=== PATIENT | male | born 1945 ===

== ENCOUNTER 2020-09-26 17:06 | Inpatient (IN) | payer MEDICARE, BC ==
[~2020-09-26] VITALS: Ht 175.3 cm; Wt 106.0 kg
--- NOTE | 2020-09-26 17:31 | NUR ---
[place] [facility] [place] PT HAS WOUND ON HIS FOOT AND ALSO HAD ELEVATED TR[place] [facility] [place] PT HAD RUNS OF APPROX 5 BEATS OF V TACH SEVERAL TIMES DURING THEIR TRANSPORT. PT RECEIVED 1G ROCEPHIN, 1G VANCOMYCIN, AND 60MG OF L[place] [facility] [place] RESTING IN RINGLESIDE, MONITORING IN PLACE, NADN AT THIS TIME, DR. SORENSEN AT BEDSIDE FOR EVAL, WCTM.
[2020-09-26 17:50] LABS: BASOPHILS % (AUTO) 0 % (0-1); EOSINOPHILS % (AUTO) 0 % (1-7); LYMPHOCYTES % (AUTO) 7 % (22-44); MEAN CORPUSCULAR HEMOGLOBIN 31.1 pg (27.5-34.5); MEAN CORPUSCULAR HGB CONC 32.8 g/dL (33.2-36.2); MEAN PLATELET VOLUME 8.6 fL (7.4-10.4); MONOCYTES % (AUTO) 9 % (2-9); NEUTROPHILS % (AUTO) 84 % (42-75); PLATELET COUNT 226 x10^3/uL (130-400); RED BLOOD COUNT 3.83 x10^6/uL (4.38-5.82)
[2020-09-26 17:51] LABS: ALBUMIN 3.2 g/dL (3.4-5.0); ANION GAP 8 mmol/L (5-15); CALCIUM 8.3 mg/dL (8.5-10.1); CHLORIDE 102 mmol/L (98-107)
[2020-09-26 17:58] LABS: CREATININE 1.41 mg/dL (0.7-1.3)
[2020-09-26 18:01] LABS: TROPONIN I 0.718 ng/mL (0.000-0.045)
--- NOTE | 2020-09-26 18:48 | NUR ---
REPORT FROM MARIELENA MCKEE
--- NOTE | 2020-09-26 18:48 | NUR ---
HOSPITALIST AT BEDSIDE
[2020-09-26 19:41] VITALS: BP 133/70
[2020-09-26] MEDS ORDERED: HEPARIN 5,000 UNITS/ML, 1ML ONE (19:49)
[2020-09-26] MEDS ORDERED: VANCOMYCIN PER PHARMACY MC PRN (20:00)
[2020-09-26] MEDS ORDERED: HEPARIN 5,000 UNITS/ML, 1ML SQ SCH (20:00)
[2020-09-26] MEDS ORDERED: SODIUM CHLORIDE 0.9% 1,000 ML IV SCH (20:00)
[2020-09-26] MEDS ORDERED: POLYETHYLENE GLYCOL 17 GM PACKET PO PRN (20:00)
[2020-09-26] MEDS ORDERED: BISACODYL 10 MG SUPP PR PRN (20:00)
[2020-09-26 20:02] VITALS: BP 133/70
[2020-09-26 20:19] LABS: INTERNATIONAL NORMALIZED RATIO 1.22 (0.93-1.1)
[2020-09-26] MEDS ORDERED: METF500T17 PO (20:21)
[2020-09-26] MEDS ORDERED: ENAL10TA9 PO (20:21)
[2020-09-26] MEDS ORDERED: POTA8CAP20 PO (20:21)
[2020-09-26] MEDS ORDERED: GLIP5TAB10 PO (20:21)
[2020-09-26] MEDS ORDERED: FURO40TA6 PO (20:21)
[2020-09-26] MEDS ORDERED: PREG25CA PO (20:21)
[2020-09-26] MEDS ORDERED: SITA50TA PO (20:21)
[2020-09-26] MEDS ORDERED: SIMV20TA19 PO (20:21)
[2020-09-26] MEDS ORDERED: PHARMACOKINETIC MONITORING MC PRN (20:30)
[2020-09-26] MEDS ORDERED: VANCOMYCIN 2,500 MG in SODIUM CHLORIDE 0.9% 500 ML IV ONE (20:30)
[2020-09-26] MEDS ORDERED: PHARMACOKINETIC CONSULTATION MC ONE (20:30)
[2020-09-26] MEDS: HEPARIN 5,000 UNITS/ML, 1ML SQ SCH (21:49)
[2020-09-26] MEDS: MEROPENEM 1 GM in SODIUM CHLORIDE 0.9% 100 ML IV SCH (21:49)
[2020-09-26] MEDS ORDERED: MAGNESIUM SULFATE 4 GM in SODIUM CHLORIDE 0.9% 100 ML IV ONE (22:00)
[2020-09-26] MEDS: FUROSEMIDE 20 MG/2 ML IV SCH (22:41)
[2020-09-26 23:41] LABS: CLOSTRIDIUM DIFFICILE ANTIGEN NEGATIVE; CLOSTRIDIUM DIFFICILE TOXIN NEGATIVE (Negative)
[2020-09-26 23:53] LABS: TROPONIN I 0.626 ng/mL (0.000-0.045)
[2020-09-27 04:00] VITALS: BP 136/69
[2020-09-27] MEDS: ASPIRIN 81 MG TABLET CHEW PO SCH (05:15)
[2020-09-27] MEDS: HEPARIN 5,000 UNITS/ML, 1ML SQ SCH ×3 (05:15→20:56)
[2020-09-27] MEDS: MEROPENEM 1 GM in SODIUM CHLORIDE 0.9% 100 ML IV SCH ×3 (05:15→20:55)
[2020-09-27 06:12] LABS: BASOPHILS % (AUTO) 0 % (0-1); EOSINOPHILS % (AUTO) 0 % (1-7); LYMPHOCYTES % (AUTO) 8 % (22-44); MEAN CORPUSCULAR HEMOGLOBIN 31.3 pg (27.5-34.5); MEAN CORPUSCULAR HGB CONC 33.1 g/dL (33.2-36.2); MEAN PLATELET VOLUME 8.9 fL (7.4-10.4); MONOCYTES % (AUTO) 8 % (2-9); NEUTROPHILS % (AUTO) 83 % (42-75); PLATELET COUNT 192 x10^3/uL (130-400); RED BLOOD COUNT 3.86 x10^6/uL (4.38-5.82)
[2020-09-27 06:20] LABS: ANION GAP 9 mmol/L (5-15); CALCIUM 8.3 mg/dL (8.5-10.1); CHLORIDE 103 mmol/L (98-107)
[2020-09-27 06:25] LABS: CREATININE 1.18 mg/dL (0.7-1.3); TROPONIN I 0.543 ng/mL (0.000-0.045)
[2020-09-27 07:01] LABS: ALBUMIN 2.9 g/dL (3.4-5.0); BILIRUBIN, DIRECT 0.2 mg/dL (0.1-0.2)
[2020-09-27 07:02] LABS: BILIRUBIN,TOTAL 0.8 mg/dL (0.2-1.0); TOTAL PROTEIN 7.3 g/dL (6.4-8.2)
[2020-09-27 07:13] LABS: HCT (SEDRATE) 36.4 % (39.2-51.8)
[2020-09-27 07:41] VITALS: BP 126/76
[2020-09-27 08:05] LABS: BILIRUBIN,INDIRECT 0.6 mg/dL (0.0-2.0)
[2020-09-27] MEDS: PREGABALIN 25 MG CAPSULE PO SCH (08:19)
[2020-09-27] MEDS: FUROSEMIDE 20 MG/2 ML IV SCH (08:19)
[2020-09-27] MEDS: ENALAPRIL 10 MG TABLET PO SCH (08:19)
[2020-09-27] MEDS: SENNA/DOCUSATE TABLET PO SCH (08:20)
[2020-09-27] MEDS ORDERED: POTASSIUM CHLORIDE 20 MEQ TAB.ER.PRT PO ONE (09:00)
[2020-09-27 14:20] VITALS: BP 122/68
[2020-09-27] MEDS ORDERED: FUROSEMIDE 20 MG/2 ML IV SCH (17:00)
[2020-09-27 19:06] VITALS: BP 120/71
[2020-09-27] MEDS: ACETAMINOPHEN 325 MG TABLET PO PRN (19:49)
[2020-09-27] MEDS: SIMVASTATIN 40 MG TABLET PO SCH (20:55)
[2020-09-27] MEDS: VANCOMYCIN 2,100 MG in SODIUM CHLORIDE 0.9% 500 ML IV SCH (22:52)
[2020-09-28 00:42] VITALS: BP 127/69
[2020-09-28] MEDS: MEROPENEM 1 GM in SODIUM CHLORIDE 0.9% 100 ML IV SCH ×3 (04:49→20:34)
[2020-09-28] MEDS: ASPIRIN 81 MG TABLET CHEW PO SCH (05:29)
[2020-09-28] MEDS: HEPARIN 5,000 UNITS/ML, 1ML SQ SCH (05:30)
[2020-09-28] MEDS: ACETAMINOPHEN 325 MG TABLET PO PRN ×2 (05:30→20:34)
[2020-09-28 05:33] LABS: BASOPHILS % (AUTO) 0 % (0-1); EOSINOPHILS % (AUTO) 1 % (1-7); LYMPHOCYTES % (AUTO) 9 % (22-44); MEAN CORPUSCULAR HEMOGLOBIN 31.7 pg (27.5-34.5); MEAN CORPUSCULAR HGB CONC 33.6 g/dL (33.2-36.2); MEAN PLATELET VOLUME 9.2 fL (7.4-10.4); MONOCYTES % (AUTO) 8 % (2-9); NEUTROPHILS % (AUTO) 82 % (42-75); PLATELET COUNT 219 x10^3/uL (130-400); RED BLOOD COUNT 3.75 x10^6/uL (4.38-5.82); RED CELL DISTRIBUTION WIDTH 13.9 % (9.4-14.8)
[2020-09-28 05:42] LABS: ANION GAP 6 mmol/L (5-15); CALCIUM 8.2 mg/dL (8.5-10.1); CHLORIDE 104 mmol/L (98-107); CREATININE 1.04 mg/dL (0.7-1.3)
[2020-09-28 06:24] VITALS: BP 138/74
[2020-09-28] MEDS: SENNA/DOCUSATE TABLET PO SCH (09:00)
[2020-09-28] MEDS: PREGABALIN 25 MG CAPSULE PO SCH (09:08)
[2020-09-28] MEDS: CARVEDILOL 3.125 MG TABLET PO SCH ×2 (09:08→17:50)
[2020-09-28] MEDS: ENALAPRIL 10 MG TABLET PO SCH (09:08)
[2020-09-28 12:50] VITALS: BP 136/76
[2020-09-28 16:56] VITALS: BP 144/74
[2020-09-28 17:17] LABS: ANION GAP 8 mmol/L (5-15); CHLORIDE 104 mmol/L (98-107); CREATININE 1.01 mg/dL (0.7-1.3)
[2020-09-28 20:06] VITALS: BP 149/79
[2020-09-28] MEDS: SIMVASTATIN 40 MG TABLET PO SCH (20:34)
[2020-09-29] MEDS: VANCOMYCIN 2,100 MG in SODIUM CHLORIDE 0.9% 500 ML IV SCH
[2020-09-29 01:15] VITALS: BP 132/79
[2020-09-29] MEDS: CARVEDILOL 3.125 MG TABLET PO SCH (05:17)
[2020-09-29] MEDS: ASPIRIN 81 MG TABLET CHEW PO SCH (05:17)
[2020-09-29] MEDS: MEROPENEM 1 GM in SODIUM CHLORIDE 0.9% 100 ML IV SCH ×3 (05:21→19:53)
[2020-09-29 06:00] LABS: BASOPHILS % (AUTO) 0 % (0-1); EOSINOPHILS % (AUTO) 0 % (1-7); LYMPHOCYTES % (AUTO) 8 % (22-44); MEAN CORPUSCULAR HEMOGLOBIN 31.4 pg (27.5-34.5); MEAN CORPUSCULAR HGB CONC 32.9 g/dL (33.2-36.2); MEAN PLATELET VOLUME 8.5 fL (7.4-10.4); MONOCYTES % (AUTO) 9 % (2-9); NEUTROPHILS % (AUTO) 83 % (42-75); PLATELET COUNT 222 x10^3/uL (130-400); RED BLOOD COUNT 3.99 x10^6/uL (4.38-5.82); RED CELL DISTRIBUTION WIDTH 13.8 % (9.4-14.8)
[2020-09-29 06:04] LABS: HCT (SEDRATE) 37.9 % (39.2-51.8)
[2020-09-29 06:08] LABS: CHLORIDE 106 mmol/L (98-107)
[2020-09-29 06:21] LABS: ANION GAP 8 mmol/L (5-15); CREATININE 0.96 mg/dL (0.7-1.3)
[2020-09-29 06:28] VITALS: BP 123/71
[2020-09-29] MEDS: SENNA/DOCUSATE TABLET PO SCH (09:54)
[2020-09-29] MEDS: LISINOPRIL 5 MG TABLET PO SCH (09:55)
[2020-09-29] MEDS: PREGABALIN 25 MG CAPSULE PO SCH (09:55)
[2020-09-29 12:38] VITALS: BP 144/75
[2020-09-29] MEDS: CARVEDILOL 6.25 MG TABLET PO SCH (17:48)
[2020-09-29 18:34] VITALS: BP 145/77
[2020-09-29] MEDS: ATORVASTATIN 40 MG TABLET PO SCH (19:53)
[2020-09-30] MEDS: VANCOMYCIN 1,800 MG in SODIUM CHLORIDE 0.9% 250 ML IV SCH (00:12)
[2020-09-30 01:47] VITALS: BP 139/74
[2020-09-30 04:59] LABS: BASOPHILS % (AUTO) 0 % (0-1); EOSINOPHILS % (AUTO) 1 % (1-7); LYMPHOCYTES % (AUTO) 9 % (22-44); MEAN CORPUSCULAR HEMOGLOBIN 31.4 pg (27.5-34.5); MEAN CORPUSCULAR HGB CONC 33.5 g/dL (33.2-36.2); MEAN PLATELET VOLUME 8.2 fL (7.4-10.4); MONOCYTES % (AUTO) 9 % (2-9); NEUTROPHILS % (AUTO) 81 % (42-75); PLATELET COUNT 220 x10^3/uL (130-400); RED BLOOD COUNT 3.92 x10^6/uL (4.38-5.82); RED CELL DISTRIBUTION WIDTH 13.8 % (9.4-14.8)
[2020-09-30 05:12] LABS: ANION GAP 7 mmol/L (5-15); CALCIUM 7.9 mg/dL (8.5-10.1); CHLORIDE 105 mmol/L (98-107); CREATININE 0.97 mg/dL (0.7-1.3)
[2020-09-30] MEDS: MEROPENEM 1 GM in SODIUM CHLORIDE 0.9% 100 ML IV SCH ×3 (06:01→20:35)
[2020-09-30] MEDS: CARVEDILOL 6.25 MG TABLET PO SCH ×2 (06:02→17:46)
[2020-09-30] MEDS: ASPIRIN 81 MG TABLET CHEW PO SCH (06:02)
[2020-09-30 08:18] VITALS: BP 104/64
[2020-09-30] MEDS: INSULIN LISPRO 100 UNITS/ML, PEN SQ-INSULIN SCH ×4 (08:32→21:49)
[2020-09-30] MEDS: PREGABALIN 25 MG CAPSULE PO SCH (09:26)
[2020-09-30] MEDS: SENNA/DOCUSATE TABLET PO SCH (09:26)
[2020-09-30] MEDS: SPIRONOLACTONE 25 MG TABLET PO SCH (09:26)
[2020-09-30] MEDS: LISINOPRIL 5 MG TABLET PO SCH (09:26)
[2020-09-30] MEDS: FUROSEMIDE 10 MG/ML ORAL SOL PO SCH (11:26)
[2020-09-30 14:08] VITALS: BP 122/65
[2020-09-30 20:17] VITALS: BP 137/73
[2020-09-30] MEDS: ATORVASTATIN 40 MG TABLET PO SCH (20:22)
[2020-09-30] MEDS: ONDANSETRON ODT 4 MG PO PRN (21:44)
[2020-10-01] MEDS: VANCOMYCIN 1,800 MG in SODIUM CHLORIDE 0.9% 250 ML IV SCH (00:08)
[2020-10-01 01:30] VITALS: BP 134/70
[2020-10-01] MEDS ORDERED: NITROGLYCERIN 0.4 MG/SPRAY SL PRN (01:30)
[2020-10-01] MEDS ORDERED: NITROGLYCERIN 0.4 MG BOTTLE (25 TABS) SL PRN (01:30)
[2020-10-01] MEDS: ONDANSETRON ODT 4 MG PO PRN (03:27)
[2020-10-01] MEDS ORDERED: METOCLOPRAMIDE 5 MG/ML, 2ML ONE (04:21)
[2020-10-01] MEDS: METOCLOPRAMIDE 5 MG/ML, 2ML IVPush SCH ×4 (04:23→22:43)
[2020-10-01] MEDS: MEROPENEM 1 GM in SODIUM CHLORIDE 0.9% 100 ML IV SCH ×3 (05:12→21:51)
[2020-10-01 05:32] LABS: BASOPHILS % (AUTO) 1 % (0-1); EOSINOPHILS % (AUTO) 0 % (1-7); LYMPHOCYTES % (AUTO) 7 % (22-44); MEAN CORPUSCULAR HEMOGLOBIN 31.5 pg (27.5-34.5); MEAN CORPUSCULAR HGB CONC 33.6 g/dL (33.2-36.2); MEAN PLATELET VOLUME 8.5 fL (7.4-10.4); MONOCYTES % (AUTO) 7 % (2-9); NEUTROPHILS % (AUTO) 86 % (42-75); PLATELET COUNT 248 x10^3/uL (130-400); RED BLOOD COUNT 4.17 x10^6/uL (4.38-5.82); RED CELL DISTRIBUTION WIDTH 13.5 % (9.4-14.8)
[2020-10-01 05:51] LABS: CHLORIDE 103 mmol/L (98-107)
[2020-10-01 05:57] LABS: ANION GAP 7 mmol/L (5-15); CALCIUM 8.5 mg/dL (8.5-10.1); CREATININE 1.06 mg/dL (0.7-1.3)
[2020-10-01] MEDS ORDERED: MORPHINE SULFATE 4 MG/ML, 1ML IVPush PRN (07:00)
[2020-10-01 07:40] VITALS: BP 155/72
[2020-10-01] MEDS: ASPIRIN 81 MG TABLET CHEW PO SCH (09:46)
[2020-10-01] MEDS: SPIRONOLACTONE 25 MG TABLET PO SCH (09:46)
[2020-10-01] MEDS: PREGABALIN 25 MG CAPSULE PO SCH (09:46)
[2020-10-01] MEDS: CARVEDILOL 6.25 MG TABLET PO SCH ×2 (09:47→17:14)
[2020-10-01] MEDS: LISINOPRIL 5 MG TABLET PO SCH (09:47)
[2020-10-01] MEDS: INSULIN LISPRO 100 UNITS/ML, PEN SQ-INSULIN SCH ×4 (09:50→21:00)
[2020-10-01] MEDS: SENNA/DOCUSATE TABLET PO SCH (09:51)
[2020-10-01] MEDS: FUROSEMIDE 10 MG/ML ORAL SOL PO SCH (12:38)
[2020-10-01 14:10] VITALS: BP 117/62
[2020-10-01] MEDS: PICC FLUSH PROTOCOL XX SCH (21:00)
[2020-10-01] MEDS: ATORVASTATIN 40 MG TABLET PO SCH (21:00)
[2020-10-02] MEDS: VANCOMYCIN 1,800 MG in SODIUM CHLORIDE 0.9% 250 ML IV SCH
[2020-10-02 01:03] VITALS: BP 145/72
[2020-10-02] MEDS: METOCLOPRAMIDE 5 MG/ML, 2ML IVPush SCH ×4 (04:32→21:31)
[2020-10-02] MEDS: MEROPENEM 1 GM in SODIUM CHLORIDE 0.9% 100 ML IV SCH ×3 (05:00→21:31)
[2020-10-02] MEDS: CARVEDILOL 6.25 MG TABLET PO SCH ×2 (05:09→17:30)
[2020-10-02] MEDS: ASPIRIN 81 MG TABLET CHEW PO SCH (05:09)
[2020-10-02 05:10] LABS: BASOPHILS % (AUTO) 1 % (0-1); EOSINOPHILS % (AUTO) 1 % (1-7); LYMPHOCYTES % (AUTO) 7 % (22-44); MEAN CORPUSCULAR HEMOGLOBIN 30.8 pg (27.5-34.5); MEAN PLATELET VOLUME 8.4 fL (7.4-10.4); MONOCYTES % (AUTO) 8 % (2-9); NEUTROPHILS % (AUTO) 84 % (42-75); PLATELET COUNT 235 x10^3/uL (130-400); RED BLOOD COUNT 4.15 x10^6/uL (4.38-5.82); RED CELL DISTRIBUTION WIDTH 13.7 % (9.4-14.8)
[2020-10-02 05:23] LABS: ALANINE AMINOTRANSFERASE 17 U/L (12-78); ALBUMIN 2.5 g/dL (3.4-5.0); ANION GAP 9 mmol/L (5-15); CALCIUM 8.8 mg/dL (8.5-10.1); CHLORIDE 104 mmol/L (98-107); CREATININE 1.11 mg/dL (0.7-1.3)
[2020-10-02 05:26] LABS: ALKALINE PHOSPHATASE 91 U/L (45-117); BILIRUBIN,TOTAL 0.5 mg/dL (0.2-1.0); TOTAL PROTEIN 6.1 g/dL (6.4-8.2)
[2020-10-02 06:59] VITALS: BP 138/75
[2020-10-02] MEDS ORDERED: FILTER 0.22 MICRON IV PRN (09:00)
[2020-10-02] MEDS ORDERED: AMIODARONE 150 MG in DEXTROSE 5% 100 ML IV ONE (09:00)
[2020-10-02] MEDS: PICC FLUSH PROTOCOL XX SCH ×2 (09:00→21:00)
[2020-10-02] MEDS: SENNA/DOCUSATE TABLET PO SCH (09:54)
[2020-10-02] MEDS: INSULIN LISPRO 100 UNITS/ML, PEN SQ-INSULIN SCH ×4 (09:54→22:10)
[2020-10-02] MEDS: FUROSEMIDE 10 MG/ML ORAL SOL PO SCH (09:55)
[2020-10-02] MEDS: LISINOPRIL 5 MG TABLET PO SCH (09:55)
[2020-10-02] MEDS: PREGABALIN 25 MG CAPSULE PO SCH (09:56)
[2020-10-02] MEDS: SPIRONOLACTONE 25 MG TABLET PO SCH (09:56)
[2020-10-02] MEDS: AMIODARONE 450 MG in DEXTROSE 5% 241 ML IV PRN ×2 (10:34→17:29)
[2020-10-02 13:40] VITALS: BP 90/56
[2020-10-02 14:47] LABS: CLOSTRIDIUM DIFFICILE ANTIGEN NEGATIVE; CLOSTRIDIUM DIFFICILE TOXIN NEGATIVE (Negative)
[2020-10-02 18:46] VITALS: BP 137/65
[2020-10-02] MEDS: ATORVASTATIN 40 MG TABLET PO SCH (21:30)
[2020-10-02] MEDS: OXYcodone IR 5MG TABLET PO PRN (22:09)
[2020-10-03 01:23] VITALS: BP 121/70
[2020-10-03] MEDS: MEROPENEM 1 GM in SODIUM CHLORIDE 0.9% 100 ML IV SCH ×3 (05:12→21:19)
[2020-10-03] MEDS: ASPIRIN 81 MG TABLET CHEW PO SCH (05:13)
[2020-10-03 05:16] VITALS: BP 129/67
[2020-10-03] MEDS: CARVEDILOL 6.25 MG TABLET PO SCH ×2 (05:16→17:47)
[2020-10-03 05:31] LABS: MEAN CORPUSCULAR HEMOGLOBIN 30.8 pg (27.5-34.5); MEAN CORPUSCULAR HGB CONC 33.1 g/dL (33.2-36.2); MEAN PLATELET VOLUME 8.4 fL (7.4-10.4); PLATELET COUNT 212 x10^3/uL (130-400); RED BLOOD COUNT 3.53 x10^6/uL (4.38-5.82); RED CELL DISTRIBUTION WIDTH 13.9 % (9.4-14.8)
[2020-10-03 05:39] LABS: CHLORIDE 101 mmol/L (98-107)
[2020-10-03 05:52] LABS: ALANINE AMINOTRANSFERASE 16 U/L (12-78); ALBUMIN 2.2 g/dL (3.4-5.0); ALKALINE PHOSPHATASE 94 U/L (45-117); ANION GAP 6 mmol/L (5-15); BILIRUBIN,TOTAL 0.5 mg/dL (0.2-1.0); CALCIUM 8.2 mg/dL (8.5-10.1); CREATININE 1.13 mg/dL (0.7-1.3); TOTAL PROTEIN 5.7 g/dL (6.4-8.2)
[2020-10-03 06:19] LABS: BAND#(MANUAL) 1.25 x10^3/uL; BANDS%(MANUAL) 6 % (0-7); EOS#(MANUAL) 0.63 x10^3/uL (0.0-0.4); EOS% (MANUAL) 3 % (1-7); LYMPH#(MANUAL) 1.67 x10^3/uL (1-3.4); LYMPHS% (MANUAL) 8 % (22-44); METAMYELOCYTES# (MANUAL) 0.21 x10^3/uL (0-0); METAMYELOCYTES% (MANUAL) 1 % (0-1); MONOS#(MANUAL) 1.88 x10^3/uL (0.3-2.7); MONOS% (MANUAL) 9 % (2-9); MYELOCYTES# (MANUAL) 0.21 x10^3/uL (0-0); MYELOCYTES% (MANUAL) 1 % (0-0); SEG#(MANUAL) 15.05 x10^3/uL (1.8-6.8); SEGS% (MANUAL) 72 % (42-75)
[2020-10-03 06:20] LABS: <PLATELET ESTIMATE> ADEQUATE; <PLT MORPHOLOGY> NORMAL PLT MORPH; ANISOCYTOSIS 1+; POLYCHROMASIA 1+
[2020-10-03 06:22] LABS: PMNS WITH VACUOLES 1+; TOXIC GRAN 1+
[2020-10-03] MEDS: INSULIN LISPRO 100 UNITS/ML, PEN SQ-INSULIN SCH ×4 (07:00→21:19)
[2020-10-03 07:10] VITALS: BP 156/72
[2020-10-03 07:22] VITALS: BP 151/71
[2020-10-03] MEDS: ONDANSETRON ODT 4 MG PO PRN (07:40)
[2020-10-03] MEDS: PREGABALIN 25 MG CAPSULE PO SCH (08:40)
[2020-10-03] MEDS: SPIRONOLACTONE 25 MG TABLET PO SCH (08:40)
[2020-10-03] MEDS: LISINOPRIL 5 MG TABLET PO SCH (08:40)
[2020-10-03] MEDS: SENNA/DOCUSATE TABLET PO SCH (08:41)
[2020-10-03] MEDS: PICC FLUSH PROTOCOL XX SCH ×2 (09:00→21:00)
[2020-10-03 09:50] LABS: OCCULT BLOOD POSITIVE (NEGATIVE)
[2020-10-03] MEDS: AMIODARONE 450 MG in DEXTROSE 5% 241 ML IV PRN (11:29)
[2020-10-03 13:58] VITALS: BP 146/73
[2020-10-03 19:05] VITALS: BP 137/72
[2020-10-03] MEDS: ATORVASTATIN 40 MG TABLET PO SCH (21:19)
[2020-10-04 01:27] VITALS: BP 131/71
[2020-10-04] MEDS: AMIODARONE 450 MG in DEXTROSE 5% 241 ML IV PRN (01:34)
[2020-10-04] MEDS: MEROPENEM 1 GM in SODIUM CHLORIDE 0.9% 100 ML IV SCH ×3 (05:17→21:18)
[2020-10-04 05:22] VITALS: BP 151/65
[2020-10-04 05:26] LABS: MEAN CORPUSCULAR HEMOGLOBIN 31.3 pg (27.5-34.5); MEAN CORPUSCULAR HGB CONC 33.3 g/dL (33.2-36.2); MEAN PLATELET VOLUME 8.2 fL (7.4-10.4); PLATELET COUNT 204 x10^3/uL (130-400); RED BLOOD COUNT 3.01 x10^6/uL (4.38-5.82); RED CELL DISTRIBUTION WIDTH 13.6 % (9.4-14.8)
[2020-10-04] MEDS: ASPIRIN 81 MG TABLET CHEW PO SCH (05:29)
[2020-10-04] MEDS: CARVEDILOL 6.25 MG TABLET PO SCH ×2 (05:29→18:31)
[2020-10-04] MEDS: OXYcodone IR 5MG TABLET PO PRN (05:29)
[2020-10-04 05:31] LABS: ALBUMIN 2.2 g/dL (3.4-5.0); CALCIUM 8.2 mg/dL (8.5-10.1); CHLORIDE 103 mmol/L (98-107)
[2020-10-04 05:35] LABS: ALANINE AMINOTRANSFERASE 15 U/L (12-78); ALKALINE PHOSPHATASE 78 U/L (45-117); BILIRUBIN,TOTAL 0.5 mg/dL (0.2-1.0); CREATININE 1.09 mg/dL (0.7-1.3); TOTAL PROTEIN 5.5 g/dL (6.4-8.2)
[2020-10-04 05:38] LABS: ANION GAP 2 mmol/L (5-15)
[2020-10-04 05:56] LABS: BAND#(MANUAL) 0.19 x10^3/uL; BANDS%(MANUAL) 1 % (0-7); EOS#(MANUAL) 0.37 x10^3/uL (0.0-0.4); EOS% (MANUAL) 2 % (1-7); LYMPH#(MANUAL) 0.37 x10^3/uL (1-3.4); LYMPHS% (MANUAL) 2 % (22-44); MONOS% (MANUAL) 7 % (2-9); MYELOCYTES# (MANUAL) 0.19 x10^3/uL (0-0); MYELOCYTES% (MANUAL) 1 % (0-0); SEGS% (MANUAL) 87 % (42-75)
[2020-10-04 05:57] LABS: <PLATELET ESTIMATE> ADEQUATE; <PLT MORPHOLOGY> NORMAL PLT MORPH; HYPOCHROMIA 1+
[2020-10-04 07:36] VITALS: BP 129/74
[2020-10-04] MEDS ORDERED: FUROSEMIDE 40 MG TABLET PO SCH (09:00)
[2020-10-04] MEDS: PICC FLUSH PROTOCOL XX SCH ×2 (09:00→21:00)
[2020-10-04] MEDS: PREGABALIN 25 MG CAPSULE PO SCH (09:06)
[2020-10-04] MEDS: SENNA/DOCUSATE TABLET PO SCH (09:06)
[2020-10-04] MEDS: SPIRONOLACTONE 25 MG TABLET PO SCH (09:07)
[2020-10-04] MEDS: LISINOPRIL 10 MG TABLET PO SCH (09:07)
[2020-10-04] MEDS: INSULIN LISPRO 100 UNITS/ML, PEN SQ-INSULIN SCH ×4 (09:08→21:46)
[2020-10-04] MEDS: AMIODARONE 200 MG TABLET PO/NG SCH ×2 (09:14→21:17)
[2020-10-04 12:48] VITALS: BP 146/75
[2020-10-04 19:26] VITALS: BP 121/68
[2020-10-04] MEDS: ATORVASTATIN 40 MG TABLET PO SCH (21:18)
[2020-10-05 00:52] VITALS: BP 148/65
[2020-10-05 03:59] LABS: ANION GAP 3 mmol/L (5-15); CALCIUM 8.1 mg/dL (8.5-10.1); CHLORIDE 102 mmol/L (98-107); CREATININE 0.97 mg/dL (0.7-1.3)
[2020-10-05 04:01] LABS: BASOPHILS % (AUTO) 1 % (0-1); EOSINOPHILS % (AUTO) 3 % (1-7); LYMPHOCYTES % (AUTO) 9 % (22-44); MEAN CORPUSCULAR HEMOGLOBIN 31.4 pg (27.5-34.5); MEAN CORPUSCULAR HGB CONC 33.5 g/dL (33.2-36.2); MEAN PLATELET VOLUME 8.1 fL (7.4-10.4); MONOCYTES % (AUTO) 7 % (2-9); NEUTROPHILS % (AUTO) 81 % (42-75); PLATELET COUNT 207 x10^3/uL (130-400); RED CELL DISTRIBUTION WIDTH 13.8 % (9.4-14.8)
[2020-10-05] MEDS: ASPIRIN 81 MG TABLET CHEW PO SCH (05:11)
[2020-10-05] MEDS: OXYcodone IR 5MG TABLET PO PRN ×2 (05:14→21:27)
[2020-10-05] MEDS: MEROPENEM 1 GM in SODIUM CHLORIDE 0.9% 100 ML IV SCH ×3 (05:14→23:52)
[2020-10-05] MEDS: CARVEDILOL 6.25 MG TABLET PO SCH ×2 (05:14→16:39)
[2020-10-05] MEDS ORDERED: SODIUM PHOSPHATE 20 MMOL in SODIUM CHLORIDE 0.9% 500 ML IV ONE (06:30)
[2020-10-05] MEDS: INSULIN LISPRO 100 UNITS/ML, PEN SQ-INSULIN SCH ×4 (07:00→21:29)
[2020-10-05 07:18] VITALS: BP 127/61
[2020-10-05] MEDS: PICC FLUSH PROTOCOL XX SCH ×2 (09:00→21:00)
[2020-10-05] MEDS: SENNA/DOCUSATE TABLET PO SCH (09:00)
[2020-10-05] MEDS: LISINOPRIL 10 MG TABLET PO SCH (10:47)
[2020-10-05] MEDS: AMIODARONE 200 MG TABLET PO/NG SCH ×2 (10:48→21:09)
[2020-10-05] MEDS: PREGABALIN 25 MG CAPSULE PO SCH (10:48)
[2020-10-05 14:06] VITALS: BP 142/73
[2020-10-05] MEDS ORDERED: PROPOFOL 10 MG/ML, 20ML ONE (15:12)
[2020-10-05] MEDS ORDERED: ACETAMINOPHEN 325 MG TABLET PO PRN (15:30)
[2020-10-05] MEDS ORDERED: OXYcodone 5 MG/5 ML ORAL.SOL UDC PO PRN (15:30)
[2020-10-05] MEDS ORDERED: FENTANYL PF 100 MCG/2ML IV PRN (15:30)
[2020-10-05 19:15] VITALS: BP 137/57
[2020-10-05 21:08] VITALS: BP 137/64
[2020-10-05] MEDS: ATORVASTATIN 40 MG TABLET PO SCH (21:09)
[2020-10-06 01:58] VITALS: BP 131/63
[2020-10-06] MEDS: OXYcodone IR 5MG TABLET PO PRN (04:52)
[2020-10-06 05:02] LABS: BASOPHILS % (AUTO) 0 % (0-1); EOSINOPHILS % (AUTO) 2 % (1-7); LYMPHOCYTES % (AUTO) 9 % (22-44); MEAN CORPUSCULAR HEMOGLOBIN 31.2 pg (27.5-34.5); MONOCYTES % (AUTO) 8 % (2-9); NEUTROPHILS % (AUTO) 80 % (42-75); PLATELET COUNT 213 x10^3/uL (130-400); RED BLOOD COUNT 2.87 x10^6/uL (4.38-5.82); RED CELL DISTRIBUTION WIDTH 13.5 % (9.4-14.8)
[2020-10-06 05:08] LABS: CHLORIDE 100 mmol/L (98-107)
[2020-10-06 05:17] LABS: ANION GAP 3 mmol/L (5-15); CALCIUM 8.2 mg/dL (8.5-10.1); CREATININE 0.88 mg/dL (0.7-1.3)
[2020-10-06] MEDS ORDERED: DIPHENHYDRAMINE 25 MG CAPSULE PO PRN (05:30)
[2020-10-06 05:40] VITALS: BP 151/82
[2020-10-06] MEDS: ASPIRIN 81 MG TABLET CHEW PO SCH (05:41)
[2020-10-06] MEDS: CARVEDILOL 6.25 MG TABLET PO SCH ×2 (05:41→17:11)
[2020-10-06 06:15] VITALS: BP 152/74
[2020-10-06] MEDS ORDERED: POTASSIUM CHLORIDE 40 MEQ in SODIUM CHLORIDE 0.9% 500 ML IV ONE (06:30)
[2020-10-06] MEDS: INSULIN LISPRO 100 UNITS/ML, PEN SQ-INSULIN SCH ×4 (08:27→20:45)
[2020-10-06] MEDS: LISINOPRIL 10 MG TABLET PO SCH (08:28)
[2020-10-06] MEDS: PREGABALIN 25 MG CAPSULE PO SCH (08:29)
[2020-10-06] MEDS: AMIODARONE 200 MG TABLET PO/NG SCH ×2 (08:29→20:40)
[2020-10-06] MEDS: SENNA/DOCUSATE TABLET PO SCH (08:38)
[2020-10-06] MEDS: PICC FLUSH PROTOCOL XX SCH ×2 (08:39→20:45)
[2020-10-06] MEDS: POTASSIUM CHLORIDE 20 MEQ TAB.ER.PRT PO SCH (09:30)
[2020-10-06] MEDS ORDERED: FUROSEMIDE 40 MG/4 ML IV ONE (09:30)
[2020-10-06] MEDS: MEROPENEM 1 GM in SODIUM CHLORIDE 0.9% 100 ML IV SCH ×3 (10:10→23:42)
[2020-10-06 12:31] VITALS: BP 100/60
[2020-10-06 14:23] LABS: MICROSCOPIC AUTO
[2020-10-06 18:47] VITALS: BP 125/64
[2020-10-06 20:38] VITALS: BP 131/71
[2020-10-06] MEDS: ATORVASTATIN 40 MG TABLET PO SCH (20:40)
[2020-10-07 01:39] VITALS: BP 125/64
[2020-10-07] MEDS: OXYcodone IR 5MG TABLET PO PRN (04:27)
[2020-10-07 05:04] LABS: ALANINE AMINOTRANSFERASE 15 U/L (12-78); ALBUMIN 2.2 g/dL (3.4-5.0); ANION GAP 4 mmol/L (5-15); CALCIUM 7.7 mg/dL (8.5-10.1); CHLORIDE 99 mmol/L (98-107); CREATININE 0.94 mg/dL (0.7-1.3)
[2020-10-07 05:06] LABS: ALKALINE PHOSPHATASE 88 U/L (45-117); BILIRUBIN,TOTAL 0.8 mg/dL (0.2-1.0); TOTAL PROTEIN 5.3 g/dL (6.4-8.2)
[2020-10-07 05:07] LABS: BASOPHILS % (AUTO) 0 % (0-1); EOSINOPHILS % (AUTO) 3 % (1-7); LYMPHOCYTES % (AUTO) 11 % (22-44); MEAN CORPUSCULAR HEMOGLOBIN 30.9 pg (27.5-34.5); MEAN PLATELET VOLUME 8.3 fL (7.4-10.4); MONOCYTES % (AUTO) 8 % (2-9); NEUTROPHILS % (AUTO) 78 % (42-75); PLATELET COUNT 210 x10^3/uL (130-400); RED BLOOD COUNT 2.83 x10^6/uL (4.38-5.82); RED CELL DISTRIBUTION WIDTH 13.5 % (9.4-14.8)
[2020-10-07] MEDS: ASPIRIN 81 MG TABLET CHEW PO SCH (06:01)
[2020-10-07] MEDS: CARVEDILOL 6.25 MG TABLET PO SCH ×2 (06:01→17:23)
[2020-10-07 08:10] VITALS: BP 114/76
[2020-10-07] MEDS: POTASSIUM CHLORIDE 20 MEQ TAB.ER.PRT PO SCH (09:05)
[2020-10-07] MEDS: INSULIN LISPRO 100 UNITS/ML, PEN SQ-INSULIN SCH ×4 (09:05→21:43)
[2020-10-07] MEDS: PREGABALIN 25 MG CAPSULE PO SCH (09:06)
[2020-10-07] MEDS: AMIODARONE 200 MG TABLET PO/NG SCH ×2 (09:06→20:09)
[2020-10-07] MEDS: FUROSEMIDE 40 MG TABLET PO SCH (09:06)
[2020-10-07] MEDS: LISINOPRIL 10 MG TABLET PO SCH (09:07)
[2020-10-07] MEDS: MEROPENEM 1 GM in SODIUM CHLORIDE 0.9% 100 ML IV SCH ×2 (09:07→17:23)
[2020-10-07] MEDS: SENNA/DOCUSATE TABLET PO SCH (09:07)
[2020-10-07] MEDS: PICC FLUSH PROTOCOL XX SCH ×2 (09:09→20:10)
[2020-10-07 14:50] VITALS: BP 120/70
[2020-10-07 18:51] VITALS: BP 135/66
[2020-10-07] MEDS: ATORVASTATIN 40 MG TABLET PO SCH (20:09)
[2020-10-07] MEDS: ACETAMINOPHEN 325 MG TABLET PO PRN (20:10)
[2020-10-08 01:14] VITALS: BP 142/65
[2020-10-08] MEDS: MEROPENEM 1 GM in SODIUM CHLORIDE 0.9% 100 ML IV SCH (01:46)
[2020-10-08 05:29] LABS: BASOPHILS % (AUTO) 1 % (0-1); EOSINOPHILS % (AUTO) 3 % (1-7); LYMPHOCYTES % (AUTO) 10 % (22-44); MEAN CORPUSCULAR HEMOGLOBIN 31.1 pg (27.5-34.5); MEAN CORPUSCULAR HGB CONC 33.2 g/dL (33.2-36.2); MEAN PLATELET VOLUME 8.1 fL (7.4-10.4); MONOCYTES % (AUTO) 8 % (2-9); NEUTROPHILS % (AUTO) 79 % (42-75); PLATELET COUNT 196 x10^3/uL (130-400); RED BLOOD COUNT 2.49 x10^6/uL (4.38-5.82); RED CELL DISTRIBUTION WIDTH 13.9 % (9.4-14.8)
[2020-10-08 05:31] LABS: HCT (SEDRATE) 23.2 % (39.2-51.8)
[2020-10-08 05:46] LABS: ANION GAP 4 mmol/L (5-15); CALCIUM 7.8 mg/dL (8.5-10.1); CHLORIDE 100 mmol/L (98-107)
[2020-10-08 05:54] LABS: CREATININE 1.01 mg/dL (0.7-1.3)
[2020-10-08 06:15] VITALS: BP 140/62
[2020-10-08] MEDS: CARVEDILOL 6.25 MG TABLET PO SCH ×2 (06:16→17:37)
[2020-10-08 07:00] VITALS: BP 113/60
[2020-10-08] MEDS: SENNA/DOCUSATE TABLET PO SCH (08:29)
[2020-10-08] MEDS: PREGABALIN 25 MG CAPSULE PO SCH (08:38)
[2020-10-08] MEDS: LISINOPRIL 10 MG TABLET PO SCH (08:38)
[2020-10-08] MEDS: PANTOPRAZOLE 40 MG IV IVPush SCH ×2 (08:39→20:15)
[2020-10-08] MEDS: AMIODARONE 200 MG TABLET PO/NG SCH ×2 (08:39→20:15)
[2020-10-08] MEDS: INSULIN LISPRO 100 UNITS/ML, PEN SQ-INSULIN SCH ×4 (08:39→20:33)
[2020-10-08] MEDS: FUROSEMIDE 40 MG TABLET PO SCH (08:39)
[2020-10-08] MEDS: POTASSIUM CHLORIDE 20 MEQ TAB.ER.PRT PO SCH (08:39)
[2020-10-08] MEDS: PICC FLUSH PROTOCOL XX SCH ×2 (09:00→20:16)
[2020-10-08] MEDS: AMPICILLIN/SULBACTAM 3 GM in SODIUM CHLORIDE 0.9% 100 ML IV SCH ×2 (11:05→17:38)
[2020-10-08 13:59] VITALS: BP 136/67
[2020-10-08 18:52] VITALS: BP 114/60
[2020-10-08] MEDS: ATORVASTATIN 40 MG TABLET PO SCH (20:15)
[2020-10-09] VITALS (16 sets, daily range): BP systolic 65–152; BP diastolic 43–78
[2020-10-09] MEDS: AMPICILLIN/SULBACTAM 3 GM in SODIUM CHLORIDE 0.9% 100 ML IV SCH ×3 (03:10→18:28)
[2020-10-09] MEDS: CARVEDILOL 6.25 MG TABLET PO SCH ×2 (05:49→17:11)
[2020-10-09 06:56] LABS: ANION GAP 3 mmol/L (5-15); CALCIUM 7.4 mg/dL (8.5-10.1); CHLORIDE 100 mmol/L (98-107); CREATININE 1.13 mg/dL (0.7-1.3)
[2020-10-09 09:06] LABS: MEAN CORPUSCULAR HEMOGLOBIN 30.9 pg (27.5-34.5); MEAN CORPUSCULAR HGB CONC 33.4 g/dL (33.2-36.2); MEAN PLATELET VOLUME 7.9 fL (7.4-10.4); PLATELET COUNT 178 x10^3/uL (130-400); RED BLOOD COUNT 1.66 x10^6/uL (4.38-5.82); RED CELL DISTRIBUTION WIDTH 13.8 % (9.4-14.8)
[2020-10-09 09:23] LABS: ANISOCYTOSIS 1+; BAND#(MANUAL) 0.29 x10^3/uL; BANDS%(MANUAL) 2 % (0-7); EOS#(MANUAL) 0.29 x10^3/uL (0.0-0.4); EOS% (MANUAL) 2 % (1-7); LYMPH#(MANUAL) 1.17 x10^3/uL (1-3.4); LYMPHS% (MANUAL) 8 % (22-44); METAMYELOCYTES# (MANUAL) 0.15 x10^3/uL (0-0); METAMYELOCYTES% (MANUAL) 1 % (0-1); MONOS#(MANUAL) 1.17 x10^3/uL (0.3-2.7); MONOS% (MANUAL) 8 % (2-9); SEG#(MANUAL) 11.53 x10^3/uL (1.8-6.8); SEGS% (MANUAL) 79 % (42-75)
[2020-10-09 09:24] LABS: <PLATELET ESTIMATE> ADEQUATE; <PLT MORPHOLOGY> NORMAL PLT MORPH
[2020-10-09] MEDS ORDERED: PANTOPRAZOLE 80 MG in SODIUM CHLORIDE 0.9% 50 ML IV ONE (09:30)
[2020-10-09] MEDS: INSULIN LISPRO 100 UNITS/ML, PEN SQ-INSULIN SCH ×4 (10:35→21:00)
[2020-10-09] MEDS: SENNA/DOCUSATE TABLET PO SCH (10:36)
[2020-10-09] MEDS: PSYLLIUM PACKET PO SCH ×2 (10:36→21:00)
[2020-10-09] MEDS: PICC FLUSH PROTOCOL XX SCH ×2 (10:36→21:00)
[2020-10-09] MEDS: AMIODARONE 200 MG TABLET PO/NG SCH ×2 (11:46→21:00)
[2020-10-09] MEDS: PREGABALIN 25 MG CAPSULE PO SCH (11:47)
[2020-10-09] MEDS: PANTOPRAZOLE 80 MG in SODIUM CHLORIDE 0.9% 100 ML IV SCH ×2 (11:47→16:22)
[2020-10-09] MEDS ORDERED: OMNIPAQUE 350 MG/ML, 100ML BOTTLE ONE (13:43)
[2020-10-09] MEDS ORDERED: CHLORHEXIDINE 15 ML UDC PO ONE (15:00)
[2020-10-09] MEDS ORDERED: FUROSEMIDE 20 MG/2 ML ONE (16:06)
[2020-10-09] MEDS ORDERED: METHOCARBAMOL 1,000 MG in DEXTROSE 5% 100 ML IV PRN (16:30)
[2020-10-09] MEDS ORDERED: EPHEDRINE 50 MG/ML, 1ML IVPush PRN (16:30)
[2020-10-09] MEDS ORDERED: hydrALAzine 20 MG/ML, 1ML IV PRN (16:30)
[2020-10-09] MEDS ORDERED: FENTANYL PF 100 MCG/2ML IV PRN (16:30)
[2020-10-09] MEDS ORDERED: LABETALOL 5MG/ML, 20ML IV PRN (16:30)
[2020-10-09] MEDS ORDERED: LORazepam 2 MG/ML, 1ML IVPush PRN (16:30)
[2020-10-09] MEDS ORDERED: PROMETHAZINE 25 MG/ML, 1ML IVPush PRN (16:30)
[2020-10-09] MEDS ORDERED: ONDANSETRON 2MG/ML, 2ML IVPush PRN (16:30)
[2020-10-09] MEDS ORDERED: HYDROmorphone 1 MG/ML, 1ML INJ IVPush PRN (16:30)
[2020-10-09] MEDS ORDERED: ACETAMINOPHEN 325 MG TABLET PO PRN (16:30)
[2020-10-09] MEDS ORDERED: EPINEPHRINE SYRINGE 0.1 MG/ML, 10ML ONE (16:52)
[2020-10-09] MEDS ORDERED: FUROSEMIDE 20 MG/2 ML IV ONE (17:00)
[2020-10-09 17:42] LABS: MEAN CORPUSCULAR HEMOGLOBIN 30.4 pg (27.5-34.5); MEAN CORPUSCULAR HGB CONC 33.7 g/dL (33.2-36.2); MEAN PLATELET VOLUME 8.3 fL (7.4-10.4); PLATELET COUNT 160 x10^3/uL (130-400); RED BLOOD COUNT 2.95 x10^6/uL (4.38-5.82); RED CELL DISTRIBUTION WIDTH 13.9 % (9.4-14.8)
[2020-10-09 17:55] LABS: ALANINE AMINOTRANSFERASE 14 U/L (12-78); ALBUMIN 1.7 g/dL (3.4-5.0); ANION GAP 3 mmol/L (5-15); CALCIUM 7.2 mg/dL (8.5-10.1); CHLORIDE 101 mmol/L (98-107)
[2020-10-09 17:58] LABS: ALKALINE PHOSPHATASE 77 U/L (45-117); BILIRUBIN,TOTAL 1.3 mg/dL (0.2-1.0); CREATININE 1.23 mg/dL (0.7-1.3); TOTAL PROTEIN 4.3 g/dL (6.4-8.2)
[2020-10-09 18:27] LABS: LYMPH#(MANUAL) 1.34 x10^3/uL (1-3.4); LYMPHS% (MANUAL) 7 % (22-44); MONOS#(MANUAL) 1.15 x10^3/uL (0.3-2.7); MONOS% (MANUAL) 6 % (2-9); SEG#(MANUAL) 16.62 x10^3/uL (1.8-6.8); SEGS% (MANUAL) 87 % (42-75)
[2020-10-09 18:28] LABS: <PLATELET ESTIMATE> ADEQUATE; <PLT MORPHOLOGY> NORMAL PLT MORPH; ANISOCYTOSIS 1+; HYPOCHROMIA 1+; MICROCYTOSIS 1+
[2020-10-09] MEDS: ATORVASTATIN 40 MG TABLET PO SCH (21:00)
[2020-10-10] VITALS (11 sets, daily range): BP systolic 79–143; BP diastolic 45–67
[2020-10-10] MEDS: AMPICILLIN/SULBACTAM 3 GM in SODIUM CHLORIDE 0.9% 100 ML IV SCH ×3 (02:23→18:43)
[2020-10-10] MEDS: CARVEDILOL 6.25 MG TABLET PO SCH ×2 (05:14→20:09)
[2020-10-10] MEDS: PANTOPRAZOLE 80 MG in SODIUM CHLORIDE 0.9% 100 ML IV SCH ×2 (05:14→13:22)
[2020-10-10 05:16] LABS: CALCIUM 7.2 mg/dL (8.5-10.1)
[2020-10-10 05:26] LABS: CHLORIDE 104 mmol/L (98-107)
[2020-10-10 05:27] LABS: ANION GAP 3 mmol/L (5-15)
[2020-10-10] MEDS ORDERED: MORPHINE SULFATE 4 MG/ML, 1ML IVPush PRN (07:00)
[2020-10-10] MEDS ORDERED: SODIUM CHLORIDE 0.9% 1,000 ML IV SCH (08:00)
[2020-10-10] MEDS: SENNA/DOCUSATE TABLET PO SCH (08:58)
[2020-10-10] MEDS: PICC FLUSH PROTOCOL XX SCH ×2 (08:59→20:23)
[2020-10-10] MEDS: PREGABALIN 25 MG CAPSULE PO SCH (09:06)
[2020-10-10] MEDS: PSYLLIUM PACKET PO SCH ×2 (09:06→20:09)
[2020-10-10] MEDS: AMIODARONE 200 MG TABLET PO/NG SCH ×2 (09:06→20:09)
[2020-10-10] MEDS: INSULIN LISPRO 100 UNITS/ML, PEN SQ-INSULIN SCH ×4 (09:07→20:10)
[2020-10-10] MEDS: ATORVASTATIN 40 MG TABLET PO SCH (20:09)
[2020-10-11] VITALS (26 sets, daily range): BP systolic 80–186; BP diastolic 43–117
[2020-10-11] MEDS: PANTOPRAZOLE 80 MG in SODIUM CHLORIDE 0.9% 100 ML IV SCH ×3 (00:46→23:12)
[2020-10-11] MEDS: AMPICILLIN/SULBACTAM 3 GM in SODIUM CHLORIDE 0.9% 100 ML IV SCH ×3 (03:26→19:57)
[2020-10-11 03:46] LABS: BASOPHILS % (AUTO) 1 % (0-1); EOSINOPHILS % (AUTO) 2 % (1-7); LYMPHOCYTES % (AUTO) 13 % (22-44); MEAN CORPUSCULAR HEMOGLOBIN 30.4 pg (27.5-34.5); MEAN CORPUSCULAR HGB CONC 34.2 g/dL (33.2-36.2); MEAN PLATELET VOLUME 8.4 fL (7.4-10.4); MONOCYTES % (AUTO) 8 % (2-9); NEUTROPHILS % (AUTO) 76 % (42-75); PLATELET COUNT 146 x10^3/uL (130-400); RED CELL DISTRIBUTION WIDTH 14.5 % (9.4-14.8)
[2020-10-11 03:54] LABS: ANION GAP 2 mmol/L (5-15); CALCIUM 6.7 mg/dL (8.5-10.1); CHLORIDE 106 mmol/L (98-107); CREATININE 1.48 mg/dL (0.7-1.3)
[2020-10-11] MEDS: ALBUMIN HUMAN 25% 100 ML IV SCH ×3 (06:16→21:30)
[2020-10-11] MEDS ORDERED: CALCIUM CHLORIDE 13.6 MEQ in SODIUM CHLORIDE 0.9% 100 ML IV ONE (06:30)
[2020-10-11] MEDS: INSULIN LISPRO 100 UNITS/ML, PEN SQ-INSULIN SCH ×4 (07:00→21:51)
[2020-10-11] MEDS ORDERED: PROPOFOL 10 MG/ML, 20ML ONE (08:34)
[2020-10-11] MEDS: PREGABALIN 25 MG CAPSULE PO SCH (09:00)
[2020-10-11] MEDS ORDERED: FENTANYL PF 100 MCG/2ML IV PRN (09:00)
[2020-10-11] MEDS: SENNA/DOCUSATE TABLET PO SCH (09:00)
[2020-10-11] MEDS: CARVEDILOL 6.25 MG TABLET PO SCH ×2 (09:00→15:22)
[2020-10-11] MEDS: PICC FLUSH PROTOCOL XX SCH ×2 (09:00→21:00)
[2020-10-11] MEDS ORDERED: ONDANSETRON 2MG/ML, 2ML IVPush PRN (09:00)
[2020-10-11] MEDS: AMIODARONE 200 MG TABLET PO/NG SCH ×2 (09:00→21:30)
[2020-10-11] MEDS: PSYLLIUM PACKET PO SCH ×2 (09:00→21:29)
[2020-10-11] MEDS ORDERED: NOREPINEPHRINE 1 MG/ML, 4ML ONE (09:46)
[2020-10-11] MEDS ORDERED: PROPOFOL 100 ML IV ONE (09:46)
[2020-10-11] MEDS ORDERED: EPINEPHRINE 1 MG/ML, 1ML ONE (09:49)
[2020-10-11] MEDS ORDERED: SODIUM BICARB 8.4%, 50ML SYRINGE ONE (09:50)
[2020-10-11] MEDS ORDERED: MIDAZOLAM 1 MG/ML, 5ML ONE (10:14)
[2020-10-11 10:25] LABS: MEAN CORPUSCULAR HEMOGLOBIN 29.7 pg (27.5-34.5); MEAN CORPUSCULAR HGB CONC 32.9 g/dL (33.2-36.2); MEAN PLATELET VOLUME 8.8 fL (7.4-10.4); PLATELET COUNT 113 x10^3/uL (130-400); RED BLOOD COUNT 1.58 x10^6/uL (4.38-5.82); RED CELL DISTRIBUTION WIDTH 14.6 % (9.4-14.8)
[2020-10-11 10:32] LABS: ALANINE AMINOTRANSFERASE 15 U/L (12-78); ALBUMIN 1.3 g/dL (3.4-5.0); ANION GAP 12 mmol/L (5-15); CALCIUM 6.8 mg/dL (8.5-10.1); CHLORIDE 113 mmol/L (98-107); CREATININE 1.52 mg/dL (0.7-1.3)
[2020-10-11 10:36] LABS: ALKALINE PHOSPHATASE 63 U/L (45-117); BILIRUBIN,TOTAL 0.7 mg/dL (0.2-1.0); TOTAL PROTEIN 2.8 g/dL (6.4-8.2); TROPONIN I 0.141 ng/mL (0.000-0.045)
[2020-10-11 10:56] LABS: MEAN CORPUSCULAR HEMOGLOBIN 29.2 pg (27.5-34.5); MEAN CORPUSCULAR HGB CONC 33.8 g/dL (33.2-36.2); MEAN PLATELET VOLUME 8.5 fL (7.4-10.4); PLATELET COUNT 191 x10^3/uL (130-400); RED BLOOD COUNT 2.91 x10^6/uL (4.38-5.82)
[2020-10-11 11:02] LABS: BAND#(MANUAL) 0.92 x10^3/uL; BANDS%(MANUAL) 3 % (0-7); EOS#(MANUAL) 0.31 x10^3/uL (0.0-0.4); EOS% (MANUAL) 1 % (1-7); LYMPH#(MANUAL) 9.46 x10^3/uL (1-3.4); LYMPHS% (MANUAL) 31 % (22-44); METAMYELOCYTES# (MANUAL) 0.31 x10^3/uL (0-0); METAMYELOCYTES% (MANUAL) 1 % (0-1); MONOS#(MANUAL) 0.92 x10^3/uL (0.3-2.7); MONOS% (MANUAL) 3 % (2-9); SEG#(MANUAL) 18.61 x10^3/uL (1.8-6.8); SEGS% (MANUAL) 61 % (42-75)
[2020-10-11 11:03] LABS: SMUDGE CELLS 2+
[2020-10-11 11:04] LABS: <PLATELET ESTIMATE> DECREASED; <PLT MORPHOLOGY> NORMAL PLT MORPH; ANISOCYTOSIS 1+; POLYCHROMASIA 1+
[2020-10-11 11:13] LABS: D-DIMER (DIC) 17.8 ug/mlFEU (0.00-0.52); PROTIME 18.1 Seconds (9.6-11.5)
[2020-10-11 11:14] LABS: INTERNATIONAL NORMALIZED RATIO 1.74 (0.93-1.1)
[2020-10-11 11:15] LABS: PROTHROMBIN TIME 18.1 Seconds (9.6-11.5)
[2020-10-11 11:23] LABS: EOS#(MANUAL) 0.29 x10^3/uL (0.0-0.4); EOS% (MANUAL) 1 % (1-7); METAMYELOCYTES# (MANUAL) 1.15 x10^3/uL (0-0); METAMYELOCYTES% (MANUAL) 4 % (0-1); MONOS#(MANUAL) 0.86 x10^3/uL (0.3-2.7); MONOS% (MANUAL) 3 % (2-9); MYELOCYTES# (MANUAL) 0.29 x10^3/uL (0-0); MYELOCYTES% (MANUAL) 1 % (0-0)
[2020-10-11 11:24] LABS: BAND#(MANUAL) 2.58 x10^3/uL; BANDS%(MANUAL) 9 % (0-7); LYMPH#(MANUAL) 4.02 x10^3/uL (1-3.4); LYMPHS% (MANUAL) 14 % (22-44); SEG#(MANUAL) 19.52 x10^3/uL (1.8-6.8); SEGS% (MANUAL) 68 % (42-75)
[2020-10-11 11:26] LABS: <PLATELET ESTIMATE> ADEQUATE; <PLT MORPHOLOGY> NORMAL PLT MORPH; ANISOCYTOSIS 1+; POLYCHROMASIA 1+; SMUDGE CELLS 1+
[2020-10-11] MEDS ORDERED: MIDAZOLAM HCL 50 MG in SODIUM CHLORIDE 0.9% 40 ML IV PRN ×2 (11:30→13:30)
[2020-10-11] MEDS ORDERED: EPINEPHRINE SYRINGE 0.1 MG/ML, 10ML ONE (12:05)
[2020-10-11] MEDS: NOREPINEPHRINE 32 MG in SODIUM CHLORIDE 0.9% 218 ML IV PRN ×3 (12:06→23:12)
[2020-10-11] MEDS ORDERED: DEXTROSE 50%, 50ML SYRINGE IVPush PRN (13:30)
[2020-10-11] MEDS ORDERED: GLUCAGON 1 MG IM PRN (13:30)
[2020-10-11] MEDS ORDERED: NOREPINEPHRINE 8 MG in SODIUM CHLORIDE 0.9% 242 ML IV PRN (13:30)
[2020-10-11] MEDS ORDERED: DEXTROSE 4 GM TAB.CHEW PO PRN (13:30)
[2020-10-11] MEDS ORDERED: PHARMACY MAY ADJ FOR RENAL FX MC SCH (13:30)
[2020-10-11] MEDS: VASOPRESSIN 20 UNIT in SODIUM CHLORIDE 0.9% 99 ML IV PRN ×2 (16:55→23:12)
[2020-10-11] MEDS ORDERED: LACTATED RINGERS 1,000 ML IVBOLUS ONE (17:00)
[2020-10-11] MEDS ORDERED: PHENYLEPHRINE 50 MG in SODIUM CHLORIDE 0.9% 245 ML IV PRN (17:30)
[2020-10-11] MEDS ORDERED: SODIUM CHLORIDE FLUSH 10ML SYR IVF SCH (21:00)
[2020-10-11] MEDS: ATORVASTATIN 40 MG TABLET PO SCH (21:29)
[2020-10-12] VITALS: BP 77/42
[2020-10-12] MEDS ORDERED: CALCIUM CHLORIDE 10%, 10ML SYR ONE ×2 (01:00→02:25)
[2020-10-12] MEDS ORDERED: EPINEPHRINE SYRINGE 0.1 MG/ML, 10ML ONE ×2 (01:00→02:25)
[2020-10-12 01:11] VITALS: BP 82/46
[2020-10-12 01:23] VITALS: BP 84/48
[2020-10-12] MEDS ORDERED: EPINEPHRINE 1 MG/ML, 1ML ONE (02:25)
[2020-10-12] MEDS ORDERED: SODIUM CHLORIDE 0.9%, 250ML ONE (02:25)
[2020-10-12] MEDS ORDERED: CODE BLUE RESPONSE XX ONE (02:25)
[2020-10-12] MEDS ORDERED: SODIUM BICARB 8.4%, 50ML SYRINGE ONE (02:25)
[2020-10-12] MEDS ORDERED: AMIODARONE 50 MG/ML, 3ML ONE (02:27)
[2020-10-12] MEDS ORDERED: EPINEPHRINE 5 MG in SODIUM CHLORIDE 0.9% 245 ML IV PRN (02:30)
== END 2020-10-12 06:10 | disposition expired | DRG 871 ==
LOC: ED 18:30 → 5SO 18:56 → UNDOADMIN 18:56 → CCU 10-11 09:45
PROVIDERS: ADMIT Family Medicine; ATTEND Hospitalist
PROC: 0HDMXZZ Extraction of Right Foot Skin, External Approach (ICD-10-PCS; principal; 2020-09-29)
PROC: 02HV33Z Insertion of Infusion Device into Superior Vena Cava, Percutaneous Approach (ICD-10-PCS; 2020-10-01)
PROC: B5181ZA Fluoroscopy of Superior Vena Cava using Low Osmolar Contrast, Guidance (ICD-10-PCS; 2020-10-01)
PROC: B548ZZA Ultrasonography of Superior Vena Cava, Guidance (ICD-10-PCS; 2020-10-01)
PROC: 0DB98ZX Excision of Duodenum, Via Natural or Artificial Opening Endoscopic, Diagnostic (ICD-10-PCS; 2020-10-05)
PROC: 0DB68ZX Excision of Stomach, Via Natural or Artificial Opening Endoscopic, Diagnostic (ICD-10-PCS; 2020-10-05)
PROC: 0D598ZZ Destruction of Duodenum, Via Natural or Artificial Opening Endoscopic (ICD-10-PCS; 2020-10-09)
PROC: 30233K1 Transfusion of Nonautologous Frozen Plasma into Peripheral Vein, Percutaneous Approach (ICD-10-PCS; 2020-10-11)
PROC: 30233N1 Transfusion of Nonautologous Red Blood Cells into Peripheral Vein, Percutaneous Approach (ICD-10-PCS; 2020-10-11)
PROC: 30233R1 Transfusion of Nonautologous Platelets into Peripheral Vein, Percutaneous Approach (ICD-10-PCS; 2020-10-11)
PROC: 5A1935Z Respiratory Ventilation, Less than 24 Consecutive Hours (ICD-10-PCS; 2020-10-11)
PROC: 0BH17EZ Insertion of Endotracheal Airway into Trachea, Via Natural or Artificial Opening (ICD-10-PCS; 2020-10-11)
PROC: 02HV33Z Insertion of Infusion Device into Superior Vena Cava, Percutaneous Approach (ICD-10-PCS; 2020-10-11)
PROC: B548ZZA Ultrasonography of Superior Vena Cava, Guidance (ICD-10-PCS; 2020-10-11)
PROC: 0W3P8ZZ Control Bleeding in Gastrointestinal Tract, Via Natural or Artificial Opening Endoscopic (ICD-10-PCS; 2020-10-11)
PROC: 5A12012 Performance of Cardiac Output, Single, Manual (ICD-10-PCS; 2020-10-12)
DX: A41.9 Sepsis, unspecified organism (principal); I21.A1 Myocardial infarction type 2; I50.43 Acute on chronic combined systolic (congestive) and diastolic (congestive) heart failure; J96.01 Acute respiratory failure with hypoxia; K22.11 Ulcer of esophagus with bleeding; K26.4 Chronic or unspecified duodenal ulcer with hemorrhage; N17.9 Acute kidney failure, unspecified; D68.69 Other thrombophilia; E87.4 Mixed disorder of acid-base balance; I42.9 Cardiomyopathy, unspecified; K56.609 Unspecified intestinal obstruction, unspecified as to partial versus complete obstruction; K56.7 Ileus, unspecified; L03.115 Cellulitis of right lower limb; M86.8X7 Other osteomyelitis, ankle and foot; I13.0 Hypertensive heart and chronic kidney disease with heart failure and stage 1 through stage 4 chronic kidney disease, or unspecified chronic kidney disease; I46.9 Cardiac arrest, cause unspecified; R57.1 Hypovolemic shock; R57.8 Other shock; E11.621 Type 2 diabetes mellitus with foot ulcer; L97.519 Non-pressure chronic ulcer of other part of right foot with unspecified severity; Z88.0 Allergy status to penicillin; Z88.8 Allergy status to other drugs, medicaments and biological substances; Z20.822 Contact with and (suspected) exposure to COVID-19; D64.9 Anemia, unspecified; E11.22 Type 2 diabetes mellitus with diabetic chronic kidney disease; E11.42 Type 2 diabetes mellitus with diabetic polyneuropathy; N18.30 Chronic kidney disease, stage 3 unspecified; E11.69 Type 2 diabetes mellitus with other specified complication; I48.91 Unspecified atrial fibrillation; K25.9 Gastric ulcer, unspecified as acute or chronic, without hemorrhage or perforation; K29.70 Gastritis, unspecified, without bleeding; K31.89 Other diseases of stomach and duodenum; K52.9 Noninfective gastroenteritis and colitis, unspecified; N20.0 Calculus of kidney; Z80.0 Family history of malignant neoplasm of digestive organs; Z80.3 Family history of malignant neoplasm of breast; Z82.49 Family history of ischemic heart disease and other diseases of the circulatory system; Z83.3 Family history of diabetes mellitus; Z85.038 Personal history of other malignant neoplasm of large intestine; Z86.16 Personal history of COVID-19; Z87.19 Personal history of other diseases of the digestive system; Z87.891 Personal history of nicotine dependence; Z90.49 Acquired absence of other specified parts of digestive tract
CPT/HCPCS: 36415; 36573; 36600; 71045; 74018; 74174; 74176; 80048; 80053; 80076; 80202; 81001; 82040; 82272; 82330; 82803; 82962; 83036; 83605; 83735; 84100; 84145; 84478; 84484; 84520; 85014; 85018; 85025; 85049; 85379; 85384; 85610; 85651; 85730; 86140; 86850; 86900; 86923; 87040; 87046; 87070; 87077; 87081; 87186; 87205; 87324; 87427; 87635; 88305; 92950; 93005; 93306; 93356; 93922; 94002; 94003; G0378; J0171; J0295; J1644; J2185; J2250; J2704; J3370; J3475; J3480; J7060; P9047; Q0162; Q9967; C1751; C9113; J0282; J1815; J1940; J2270; J2370; J2765; J7040; J7050; J7120; P9016; P9017; P9035; Q0163